=== PATIENT | male | born 1955 | race Two or more races ===

== ENCOUNTER 2024-05-07 07:48 | Outpatient (CLI) | payer OTHER, MEDICARE ==
--- NOTE | 2024-05-07 17:28 | XRAY Report ---
PROCEDURE: Knee 3V LT INDICATIONS: KNEE PAIN, LEFT TECHNIQUE: 3 views of the knee(s) were acquired. COMPARISON: None. FINDINGS: Bones: Mild degenerative changes. No acute displaced fracture or dislocation. Soft tissues: Suspected intra-articular body is seen at the posterior joint on lateral view. Mild to moderate joint effusion. IMPRESSION: No acute displaced fracture or dislocation. Mild degenerative changes. Small intra-articular possible loose body Mild to moderate effusion. If there is high concern for further derangement, consider MRI evaluation. Reviewed by: Jacques Merritt MD on 05/07/2024 5:27 PM PDT Approved by: Jacques Merritt MD on 05/07/2024 5:27 PM PDT Station ID: [id number]
== END 2024-05-07 07:49 | disposition home or self-care (01) ==
LOC: DI.N 07:48
PROVIDERS: ATTEND Physician Assistant Medical
DX: M17.12 Unilateral primary osteoarthritis, left knee (principal); M25.462 Effusion, left knee

== ENCOUNTER 2024-05-25 16:35 | Outpatient (CLI) | payer OTHER ==
--- NOTE | 2024-05-25 18:02 | MRI Report ---
Knee LT WO CLINICAL INFORMATION: 68 years of age, Male, LEFT KNEE PAIN. COMPARISON: None Technique: Multisequence, multiplanar MRI of the left knee was performed without intravenous contrast . FINDINGS: Menisci: In the medial meniscus, there is a complex tear of the posterior horn, with an undersurface flap component. There is marked extrusion of the medial meniscus body with near maceration of the med ial meniscus body. The lateral meniscus is unremarkable. Cruciate ligaments: The anterior and posterior cruciate ligaments are intact. MCL/LCL: Medial bowing of the MCL. The biceps femoris tendon is unremarkable. The fibular collateral ligament is unremarkable. The iliotibial band is intact. The popliteus muscle and tendon also appear intact. Extensor mechanism: The quadricep tendon is unremarkable. Mild tendinosis of the proximal patellar te ndon. Patellofemoral joint: Alignment within the patellofemoral joint is normal. The patellofemoral ligame nts are intact. Cartilage of the patella is well maintained. There is mild chondral irregularity in t he medial trochlea. Cartilage of the central and lateral trochlea is well maintained. Cartilage and bone: In the medial compartment, there is large areas of chondral denudation in the avelino ghtbearing portion of the medial femoral condyle, with moderate subchondral marrow edema. There is sm all subchondral fracture of the medial tibial plateau, with marked subchondral marrow edema. In the l ateral compartment, the cartilage is grossly well maintained. Miscellaneous: Moderate knee effusion. Large popliteal cyst. No intra-articular bodies are identified . Normal muscle signal intensity and morphology. Varicose veins are seen in the medial and the environment artist ior knee. Mild subcutaneous edema of the anterior knee. IMPRESSION: 1.Extensive tear of the medial meniscus. 2.Moderate, medial compartment predominant chondrosis with moderate subchondral marrow edema in the m edial femoral condyle. 3.Small subchondral fracture of the medial tibial plateau with marked subchondral marrow edema. 4.Moderate knee effusion. Large popliteal cyst. Reviewed by: Jania Alcala MD on 05/25/2024 6:01 PM PDT Approved by: Jania Alcala MD on 05/25/2024 6:01 PM PDT Station ID: [id number]
== END 2024-05-25 16:36 | disposition home or self-care (01) ==
LOC: DI 16:35
PROVIDERS: ATTEND Nurse Practitioner Family
DX: S82.142A Displaced bicondylar fracture of left tibia, initial encounter for closed fracture (principal); S83.242A Other tear of medial meniscus, current injury, left knee, initial encounter; M25.462 Effusion, left knee; M71.22 Synovial cyst of popliteal space [Baker], left knee